=== PATIENT | female | born 2000 | race Caucasian/White ===

== ENCOUNTER → 2022-09-20 12:16 | Outpatient (BNVA) | payer OTHER, SELFPAY | PROVIDERS: Family Provider Family Medicine; Visit Provider Specialist | DX: G43.711 Chronic migraine without aura, intractable, with status migrainosus (principal); G40.802 Other epilepsy, not intractable, without status epilepticus; R20.0 Anesthesia of skin; R20.2 Paresthesia of skin | CPT/HCPCS: 64615; 99213; J0585 ==

== ENCOUNTER → 2022-12-20 10:59 | Outpatient (BNVA) | payer OTHER, MEDICAID, SELFPAY | PROVIDERS: Family Provider Family Medicine; Visit Provider Specialist | DX: G40.802 Other epilepsy, not intractable, without status epilepticus (principal); G43.711 Chronic migraine without aura, intractable, with status migrainosus | CPT/HCPCS: 64615; 99213; J0585 ==